=== PATIENT | female | born 1985 | race Caucasian/White ===

== ENCOUNTER 2018-01-25 16:21 | Emergency (ER) | payer OTHER ==
[2018-01-25] MEDS: METOCLOPRAMIDE INJ 10MG/2ML VIAL (J2765) IV (17:42)
[2018-01-25] MEDS: NS 1,000 ML IV (17:43)
[2018-01-25] MEDS: KETOROLAC 30 MG/ML VIAL (J1885) IV (17:43)
== END 2018-01-25 18:31 | disposition home or self-care (01) ==
LOC: M ED 16:21
DX: G43.909 Migraine, unspecified, not intractable, without status migrainosus (principal); D49.6 Neoplasm of unspecified behavior of brain; Z88.2 Allergy status to sulfonamides; Z88.8 Allergy status to other drugs, medicaments and biological substances
CPT/HCPCS: J1885

== ENCOUNTER → 2018-01-25 | Outpatient (REF) | payer OTHER | LOC: M LAB REF 12:59 | DX: J02.0 Streptococcal pharyngitis (principal) | CPT/HCPCS: 87077 ==

== ENCOUNTER 2018-05-07 18:57 | Emergency (ER) | payer OTHER ==
[2018-05-07] MEDS: NS 1,000 ML IV (20:09)
[2018-05-07] MEDS: KETOROLAC 30 MG/ML VIAL (J1885) IV (20:09)
[2018-05-07] MEDS: METOCLOPRAMIDE INJ 10MG/2ML VIAL (J2765) IV (20:09)
[2018-05-07] MEDS: diphenhydrAMINE INJ 50MG/ML VIAL (J1200) IV (20:09)
== END 2018-05-07 21:03 | disposition home or self-care (01) ==
LOC: M ED 18:57
DX: G43.909 Migraine, unspecified, not intractable, without status migrainosus (principal); J45.909 Unspecified asthma, uncomplicated; D43.2 Neoplasm of uncertain behavior of brain, unspecified; Z79.899 Other long term (current) drug therapy; Z88.6 Allergy status to analgesic agent; Z88.2 Allergy status to sulfonamides
CPT/HCPCS: J1200

== ENCOUNTER → 2018-05-18 | Outpatient (CLI) | payer OTHER | LOC: M ADAMS 09:20 | DX: S90.31XA Contusion of right foot, initial encounter (principal); X58.XXXA Exposure to other specified factors, initial encounter; Y92.89 Other specified places as the place of occurrence of the external cause; Y93.9 Activity, unspecified; Y99.9 Unspecified external cause status | CPT/HCPCS: 73630 ==

== ENCOUNTER → 2018-10-24 | Outpatient (CLI) | payer OTHER ==
[~2018-10-24] MED LIST: ACET50TA PO; CETI10TA PO; DEXA5TA; DOCU10ELUD PO; IMIT50TA PO; KETO10TAB; MOM30SS PO; ONDA8TAB7; PERCOCET PO; TYLE325T5 PO; VITMTA PO; ZOFR4TAB14 PO
--- NOTE | 2018-10-24 17:29 | REP ---
Digital diagnostic unilateral left breast mammography with CAD and focused left breast sonography: History: Lump in the left breast at approximately 6 o'clock position. Present times 1 month. No comparison mammography available. Mammographic findings: A skin marker is affixed to the skin at the site of the palpable lump. Routine views the left breast are augmented by magnified focal spot compression images. These demonstrate that the breast parenchyma is heterogeneously dense in a pattern which would inhibit the sensitivity of mammography. No dominant density is seen mammographically at the site of the palpable lump or elsewhere in the left breast. No architectural distortion, worrisome skin change, or suspicious microcalcification is observed. No significant mammographic abnormality. Sonographic findings: The left breast is scanned inferiorly in the area of the palpable lump. At the site of the palpable lump there is a hyperechoic solid area 9 x 4 x 9 mm located 4 cm from the nipple. This is compatible with locally inflamed fat versus small lipoma. It has a benign appearance. Impression: BIRADS category 3 probably benign left breast imaging. Mammogram is unremarkable. A hyperechoic subcutaneous nodule is seen at the site of the palpable lump on ultrasound. Repeat sonography in 6 months time is recommended. Clinical follow-up is recommended. BI-RADS/ACR category 3 mammogram. Probably benign findings. Initial short-term followup (usually 6 month) examination. This mammogram was interpreted with the aid of an FDA-approved computer-aided detection system. The patient states she had a clinical breast exam in October 2018. The patient letter being requested is M3. Dense. Electronically Signed by Elia Tubbs MD 10/24/2018 08:44 P
== END ==
LOC: M RAD 14:49
PROVIDERS: ATTEND Physician Assistant
DX: N63.0 Unspecified lump in unspecified breast (principal)

== ENCOUNTER → 2019-03-21 | Outpatient (REF) | payer OTHER ==
[~2019-03-21] MED LIST changes: -ACET50TA PO; -DOCU10ELUD PO; +DOCU5LIQ PO; +MAPA500T17 PO
[2019-03-21 21:02] LABS: BLOOD UREA NITROGEN 19 MG/DL (7-18); CREATININE FOR GFR 0.66 MG/DL (0.55-1.30); GLOMERULAR FILTRATION RATE > 60.0 (>60)
== END ==
LOC: M LAB REF 13:47
PROVIDERS: ATTEND Physician Assistant
DX: D43.2 Neoplasm of uncertain behavior of brain, unspecified (principal)

== ENCOUNTER → 2019-04-16 | Outpatient (CLI) | payer OTHER ==
--- NOTE | 2019-04-16 12:52 | REP ---
Focused left breast sonography: History: 6 month followup left breast nodule. Comparison sonography October 24, 2018 showed a hyperechoic subcutaneous nodule at the site of a palpable lump. Followup sonography was recommended. Sonographic findings: Left breast is scanned again from 5 o'clock to 7 o'clock. At 6 o'clock position, a oval-shaped very slightly hyperechoic nodular area is seen measuring 14 x 4 x 5 mm. The patient states she can no longer feel a palpable abnormality. The hyperechoic area is felt to be essentially unchanged and not suspicious. Its previous dimensions were 9 x 4 x 9 mm. Impression: BI-RADS category 2 benign sonographic findings. Clinical followup is advised. Electronically Signed by Elia Tubbs MD 04/16/2019 09:05 P
== END ==
LOC: M RAD 11:11
PROVIDERS: ATTEND Physician Assistant
DX: N63.0 Unspecified lump in unspecified breast (principal)

== ENCOUNTER → 2019-07-24 | Outpatient (CLI) | payer OTHER ==
[~2019-07-24] MED LIST changes: +COQ1200C3 PO; +ONDA8TAB10; -ONDA8TAB7; +PREN29TA4 PO
[2019-07-24 18:51] LABS: BASO # 0.1 10^3/uL (0.0-0.2); BASO % 0.5 % (0.0-1.0); EOS # 0.2 10^3/uL (0.0-0.5); EOS % 1.8 % (0.0-3.0); HEMATOCRIT 37.9 % (36.0-47.0); HEMOGLOBIN 12.5 g/dl (12.0-15.5); LYMPH # 2.6 10^3/uL (1.5-5.0); LYMPH % 25.3 % (24.0-44.0); MEAN CORPUSCULAR HEMOGLOBIN 29.8 pg (27.0-33.0); MEAN CORPUSCULAR VOLUME 90.5 fl (80.0-96.0); MONO # 0.6 10^3/uL (0.0-0.8); NEUTROPHILS # 6.8 10^3/uL (1.5-8.5); PLATELET COUNT, AUTOMATED 281 10^3/uL (150-450); RED BLOOD COUNT 4.19 10^6/uL (4.00-5.40); WHITE BLOOD COUNT 10.4 10^3/uL (4.0-10.0)
[2019-07-24 20:27] LABS: CHLAMYDIA DNA AMPLIFICATION NEGATIVE (NEGATIVE); GC DNA AMPLIFICATION NEGATIVE (NEGATIVE)
[2019-07-26 09:57] LABS: HEPATITIS C VIRUS ABY INDEX 0.1 INDEX (<0.8); HIV 1&2 SCREEN CENTAUR NEGATIVE (NEGATIVE); RUBELLA IgG QUALITATIVE IMMUNE (IMMUNE)
== END ==
LOC: M SMT 14:30
PROVIDERS: ATTEND Obstetrics & Gynecology
DX: Z36.89 Encounter for other specified antenatal screening (principal)

== ENCOUNTER → 2019-09-30 | Outpatient (CLI) | payer OTHER ==
[~2019-09-30] MED LIST changes: -COQ1200C3 PO; -ONDA8TAB10; +ONDA8TAB7; -PREN29TA4 PO
--- NOTE | 2019-09-30 12:39 | REP ---
Clinical: Anatomical evaluation. Comparison: None . Findings: Examination demonstrates a single live intrauterine in cephalic presentation. motion is identified by technologist. Placenta is noted anterior and grade zero without evidence for placenta previa or abruption. Amniotic fluid volume is normal. Cervix measures 4.4 cm in length and appears closed. Nuchal cord noted. Gestational age by LMP 18 weeks 2 days with CARON 02/29/2020 . Gestational age by current measurements 19 weeks 2 days with CARON 02/22/2020 . FHR equals 146 beats per minute. BPD 4.6 cm 19 weeks 6 days HC 16.3 cm 19 weeks 0 days AC 13.9 cm 19 weeks 2 days FL 2.8 cm 18 weeks 4 days HL 2.9 cm 19 weeks 3 days HC/AC ratio 1.17 Estimated weight 270 grams ( 75th percentile). Anatomical assessment demonstrates normal structures including cranium, choroid plexus, cavum, cerebellum/posterior fossa, facial features, lungs, four-chamber heart/ventricular outflow tracts, diaphragm, stomach, cord insertion/three-vessel cord, kidneys/bladder, spine, and extremities. Impression: Single live intrauterine in cephalic presentation demonstrating appropriate interval growth. Anatomical assessment is complete and normal. 2. Nuchal cord noted. Electronically Signed by Pj Galdamez MD 09/30/2019 12:31 P
== END ==
LOC: M RAD 11:08
PROVIDERS: ATTEND Obstetrics & Gynecology
DX: Z34.82 Encounter for supervision of other normal pregnancy, second trimester (principal); Z3A.19 19 weeks gestation of pregnancy; O28.3 Abnormal ultrasonic finding on antenatal screening of mother

== ENCOUNTER → 2019-10-01 | Outpatient (CLI) | payer OTHER | LOC: M PLALAB 13:59 | PROVIDERS: ATTEND Obstetrics & Gynecology | DX: O09.522 Supervision of elderly multigravida, second trimester (principal); Z3A.00 Weeks of gestation of pregnancy not specified ==

== ENCOUNTER → 2019-11-04 | Outpatient (CLI) | payer OTHER ==
[2019-11-04 13:44] LABS: HEMATOCRIT 35.4 % (36.0-47.0); HEMOGLOBIN 11.5 g/dl (12.0-15.5); MEAN CORPUSCULAR HEMOGLOBIN 29.7 pg (27.0-33.0); MEAN CORPUSCULAR HGB CONC 32.5 g/dl (32.0-36.5); MEAN CORPUSCULAR VOLUME 91.5 fl (80.0-96.0); PLATELET COUNT, AUTOMATED 251 10^3/uL (150-450); RED BLOOD COUNT 3.87 10^6/uL (4.00-5.40); WHITE BLOOD COUNT 8.9 10^3/uL (4.0-10.0)
== END ==
LOC: M PLALAB 10:29
PROVIDERS: ATTEND Obstetrics & Gynecology
DX: Z34.92 Encounter for supervision of normal pregnancy, unspecified, second trimester (principal)

== ENCOUNTER 2019-11-23 13:22 | Outpatient (CLI) | payer OTHER ==
[~2019-11-23] VITALS: Ht 160 cm; Wt 73.9 kg
[~2019-11-23 13:22] MED LIST changes: +ONDA8TAB10; -ONDA8TAB7
[2019-11-23 13:42] VITALS: BP 98/52
[2019-11-23] MEDS ORDERED: PREN29TA4 PO (13:48)
[2019-11-23] MEDS ORDERED: COQ1200C3 PO (13:48)
[2019-11-23 14:43] VITALS: BP 114/62
== END 2019-11-23 14:21 | disposition home or self-care (01) ==
LOC: M LDO 13:22
PROVIDERS: ATTEND Obstetrics & Gynecology
DX: O36.8120 Decreased fetal movements, second trimester, not applicable or unspecified (principal); Z3A.27 27 weeks gestation of pregnancy

== ENCOUNTER → 2020-01-27 | Outpatient (REF) | payer OTHER, MEDICAID ==
[~2020-01-27] MED LIST changes: +COQ1200C3 PO; +PREN29TA4 PO
== END ==
LOC: M SFHCWAGY 12:52
PROVIDERS: ATTEND Specialist
DX: Z34.83 Encounter for supervision of other normal pregnancy, third trimester (principal)

== ENCOUNTER 2020-02-19 00:30 | Inpatient (IN) | payer OTHER, MEDICAID ==
[2020-02-19] VITALS (24 sets, daily range): BP systolic 98–152; BP diastolic 54–84
[~2020-02-19] VITALS: Ht 160 cm; Wt 76.2 kg
[2020-02-19] MEDS ORDERED: PENICILLIN G POTASSIUM IV 5 MU in D5W MINI-BAG PLUS 100 ML IV STA (01:02)
[2020-02-19] MEDS ORDERED: LACTATED RINGER'S 1000 ML IV STA (01:02)
[2020-02-19 01:26] LABS: HEMATOCRIT 32.2 % (36.0-47.0); HEMOGLOBIN 10.1 g/dl (12.0-15.5); MEAN CORPUSCULAR HEMOGLOBIN 25.8 pg (27.0-33.0); MEAN CORPUSCULAR HGB CONC 31.4 g/dl (32.0-36.5); MEAN CORPUSCULAR VOLUME 82.4 fl (80.0-96.0); PLATELET COUNT, AUTOMATED 230 10^3/uL (150-450); RED BLOOD COUNT 3.91 10^6/uL (4.00-5.40); WHITE BLOOD COUNT 12.5 10^3/uL (4.0-10.0)
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
[2020-02-19] MEDS ORDERED: ONDANSETRON 4 MG TAB PO PRN (03:30)
[2020-02-19] MEDS ORDERED: LR 1,000 ML IV SCH (05:16)
--- NOTE | 2020-02-19 05:18 | IPNPDOC ---
Text Note Date of Service The patient was seen on 02/19/20. NOTE Progress FH 135, Cat I UC 4-5 minutes x 60 seconds, moderate SVE 4+/90/-1, minimal change Augment with pitocin Anticipate NSVB VS,Fishbone, I+O VS, Fishbone, I+O Laboratory Tests 02/19/20 01:15 Vital Signs Date Time Temp Pulse Resp B/P (MAP) Pulse Ox O2 Delivery O2 Flow Rate FiO2 02/19/20 04:29 97 119/69 (86) Angle Pinzon CNM Feb 19, 2020 05:18
[2020-02-19] MEDS ORDERED: PENICILLIN G POTASSIUM IV 2.5 MU in IV 1 EA IV SCH (05:30)
[2020-02-19] MEDS ORDERED: OXYTOCIN DRIP 30 UNITS in IV 1 EA IV SCH ×5 (05:30→10:18)
--- NOTE | 2020-02-19 07:19 | IPNPDOC ---
Text Note Date of Service The patient was seen on 02/19/20. NOTE Progress Becoming uncomfortable UC 2-3 minutes apart x 60 seconds, moderate Pitocin @ 2mu FH 130, Cat I SVE 6/100/-1 Stadol/phenergan ordered. Anticipate NSVB VS,Fishbone, I+O VS, Fishbone, I+O Laboratory Tests 02/19/20 01:15 Vital Signs Date Time Temp Pulse Resp B/P (MAP) Pulse Ox O2 Delivery O2 Flow Rate FiO2 02/19/20 06:26 98.7 100 128/76 (93) I&O- Last 24 Hours up to 6 AM 02/19/20 06:00 Intake Total 800 ml Balance 800 ml Angle Pinzon CNM Feb 19, 2020 07:19
[2020-02-19] MEDS ORDERED: PROMETHAZINE INJ 25 MG/ML VIAL (J2550) IV ONE (07:30)
[2020-02-19] MEDS ORDERED: BUTORPHANOL 2 MG/ML INJ (J0595) IV ONE (07:30)
[2020-02-19] MEDS ORDERED: RHOGAM 300 MCG (1500 IU) INJ (J2790) IM SCH (10:30)
[2020-02-19] MEDS ORDERED: DIBUCAINE 1% OINTMENT 30GM TOP PRN (10:30)
[2020-02-19] MEDS ORDERED: ACETAMINOPHEN TAB 650MG DOSE (2X325MG) PO PRN (10:30)
[2020-02-19] MEDS ORDERED: MEASLES,MUMPS,RUBELLA VACCINE INJ (MMR-II) (90707) SC SCH (10:30)
[2020-02-19] MEDS ORDERED: METHYLERGONOVINE MALEATE 0.2 MG TAB PO PRN (10:30)
[2020-02-19] MEDS ORDERED: ACETAMINOPHEN 500 MG TAB PO PRN (10:30)
[2020-02-19] MEDS ORDERED: DOCUSATE SODIUM 100 MG CAP PO PRN (10:30)
--- NOTE | 2020-02-19 10:33 | DN ---
DATE OF DELIVERY: 02/19/2020 DELIVERY NOTE: Mo is a 3, para 3-0-0-3 now, who is admitted to labor and delivery in active labor. She coped with her labor with IV pain medications. IV Pitocin was started to augment her labor. She had assisted rupture of membranes for a moderate amount of clear odorless fluid is 0923 hours. She reached complete dilation at 0947 hours. She pushed to a normal spontaneous vaginal delivery of a live female infant in right occiput anterior (MARY) position with restitution to occiput transverse (ROT) position at 0951 hours. Shoulders delivered with gentle downward traction and the corpus immediately followed. The female was laid on the maternal abdomen crying and active. Mouth and nares were bulb suctioned. The cord was clamped times two and cut by the father of the baby under my direction once pulsation ceased. Spontaneous expulsion of an intact placenta with three-vessel cord by Schultze mechanism was at 0956 hours. Uterine hemostasis achieved with IV Pitocin rapid infusion and uterine fundal massage. Estimated blood loss 400 mL. Perineum and vagina inspected noted to be intact. female. 9, 9. Weight 7 pounds 13 ounces (3530 grams). The family have named their daughter Merry and the mom is going to breastfeed. At the close of delivery lap counts and instrument counts were correct and verified.
[2020-02-20 06:01] VITALS: BP 108/61
[2020-02-20] MEDS ORDERED: PRENATAL VITAMINS CHEWABLE TABLET PO SCH (09:00)
[2020-02-20 18:00] VITALS: BP 125/75
== END 2020-02-20 18:30 | disposition home or self-care (01) | DRG 560 ==
LOC: M LDO 00:30 → M LDI 01:03 → EEVIPCON 01:03 → M OBS 12:51
PROVIDERS: ADMIT Advanced Practice Midwife; ATTEND Advanced Practice Midwife
PROC: 10E0XZZ Delivery of Products of Conception, External Approach (ICD-10-PCS; principal; 2020-02-19)
PROC: 10907ZC Drainage of Amniotic Fluid, Therapeutic from Products of Conception, Via Natural or Artificial Opening (ICD-10-PCS; 2020-02-19)
DX: O99.824 Streptococcus B carrier state complicating childbirth (principal); O09.523 Supervision of elderly multigravida, third trimester; Z37.0 Single live birth; Z3A.39 39 weeks gestation of pregnancy

== ENCOUNTER → 2021-02-16 | Outpatient (REF) | payer OTHER ==
[2021-02-16 15:27] LABS: HEMATOCRIT 38.4 % (36.0-47.0); HEMOGLOBIN 13.1 g/dl (12.0-15.5); MEAN CORPUSCULAR HGB CONC 34.1 g/dl (32.0-36.5); MEAN CORPUSCULAR VOLUME 90.8 fl (80.0-96.0); PLATELET COUNT, AUTOMATED 256 10^3/uL (150-450); RED BLOOD COUNT 4.23 10^6/uL (4.00-5.40); WHITE BLOOD COUNT 11.2 10^3/uL (4.0-10.0)
[2021-02-16 16:43] LABS: HEPATITIS C VIRUS ABY INDEX 0.1 INDEX (<0.8); HIV 1&2 SCREEN CENTAUR NEGATIVE (NEGATIVE)
[2021-02-16 16:49] LABS: CHLAMYDIA DNA AMPLIFICATION NEGATIVE (NEGATIVE); GC DNA AMPLIFICATION NEGATIVE (NEGATIVE)
== END ==
LOC: M PLALAB 13:23
PROVIDERS: ATTEND Advanced Practice Midwife
DX: Z34.90 Encounter for supervision of normal pregnancy, unspecified, unspecified trimester (principal); Z3A.00 Weeks of gestation of pregnancy not specified

== ENCOUNTER → 2021-03-25 | Outpatient (CLI) | payer OTHER ==
--- NOTE | 2021-03-25 10:18 | REP ---
INDICATION: ANATOMY COMPARISON: None. TECHNIQUE: Transabdominal obstetrical ultrasound with color Doppler evaluation. FINDINGS: Examination demonstrates a single live intrauterine in breech presentation. motion is identified by technologist. Placenta is noted posterior and grade 1 without evidence for placenta previa or abruption. Amniotic fluid volume is normal. Cervix measures 3.9 cm in length and appears closed.. Gestational age by LMP 18 weeks 2 days with CARON 08/24/2021. Gestational age by current measurements 18 weeks 1 day with CARON 08/25/2021. FHR equals 135 beats per minute. Estimated weight 234 grams (48thpercentile). Anatomical assessment demonstrates normal structures including cranium, choroid plexus, cavum, cerebellum/posterior fossa, facial features, lungs, diaphragm, stomach, cord insertion/three-vessel cord, kidneys/bladder, and extremities. IMPRESSION: Single live intrauterine in breech presentation demonstrating appropriate estimated weight. Limited evaluation of the heart/ventricular outflow tracts and spine. Remainder of the anatomical assessment is complete and normal. <Electronically signed by Pj Galdamez > 03/25/21 [id number]
== END ==
LOC: M WHC 08:05
PROVIDERS: ATTEND Advanced Practice Midwife
DX: Z34.82 Encounter for supervision of other normal pregnancy, second trimester (principal)

== ENCOUNTER → 2021-05-21 | Outpatient (CLI) | payer OTHER ==
--- NOTE | 2021-05-21 12:58 | REP ---
INDICATION: F/U ANATOMY. COMPARISON: Comparison study March 25, 2021.. TECHNIQUE: Transabdominal obstetric sonography. FINDINGS: Scanning through the gravid uterus demonstrates a viable single intrauterine gestation in breech lie. motion is observed and heart rate is recorded at 139 beats per minute. A posterior placenta is seen, grade 1, without evidence of placenta previa. Closed cervical length is measured at 4.3 cm transabdominally. No extrauterine abnormality is observed. Amniotic fluid is subjectively normal. No anomaly is seen. The following anatomic structures are identified and felt to be sonographically unremarkable: cranium, choroid plexus, cavum, cerebellum and posterior fossa, face and profile, lungs, four-chamber heart with left and right ventricular outflow tract views, diaphragm, left-sided stomach, abdominal wall cord insertion, three-vessel umbilical cord, kidneys and bladder, spine, and upper and lower extremities. Biometry chart: BPD 6.4 cm, 26 weeks 0 days Head circumference 24.9 cm, 27 weeks 0 days Abdominal circumference 23.1 cm, 27 weeks 3 days Femur length 4.8 cm, 26 weeks 2 days Humeral length 4.6 cm, 27 weeks 1 day HC AC ratio normal 1.07 Cephalic index normal 0.70 Estimated weight 1000 g, 2 lb 3 oz, 59th percentile for 26 weeks 3 days IMPRESSION: Viable single intrauterine gestation at 26 weeks 5 days by today's composite sonographic criteria. CARON by today's sonography August 22, 2021. No complication identified. Expected gestational age estimate from known CARON of August 24, 2021 is 26 weeks 3 days. Appropriate interval growth. In conjunction with the prior study, anatomic survey is felt to be complete. <Electronically signed by Pasquale Tubbs > 05/21/21 1852
== END ==
LOC: M WHC 09:31
PROVIDERS: ATTEND Advanced Practice Midwife
DX: Z34.93 Encounter for supervision of normal pregnancy, unspecified, third trimester (principal)

== ENCOUNTER → 2021-06-04 | Outpatient (CLI) | payer OTHER ==
[2021-06-04 13:16] LABS: HEMATOCRIT 34.8 % (36.0-47.0); HEMOGLOBIN 11.2 g/dl (12.0-15.5); MEAN CORPUSCULAR HEMOGLOBIN 29.8 pg (27.0-33.0); MEAN CORPUSCULAR HGB CONC 32.2 g/dl (32.0-36.5); MEAN CORPUSCULAR VOLUME 92.6 fl (80.0-96.0); PLATELET COUNT, AUTOMATED 243 10^3/uL (150-450); RED BLOOD COUNT 3.76 10^6/uL (4.00-5.40); WHITE BLOOD COUNT 10.9 10^3/uL (4.0-10.0)
== END ==
LOC: M PLALAB 10:16
PROVIDERS: ATTEND Advanced Practice Midwife
DX: O09.529 Supervision of elderly multigravida, unspecified trimester (principal)

== ENCOUNTER → 2021-07-26 | Outpatient (REF) | payer OTHER | LOC: M SFHCWAGY 17:10 | PROVIDERS: ATTEND Obstetrics & Gynecology | DX: Z34.93 Encounter for supervision of normal pregnancy, unspecified, third trimester (principal) ==

== ENCOUNTER 2021-08-05 01:10 | Outpatient (CLI) | payer OTHER ==
--- NOTE | 2021-08-05 07:35 | IPN ---
PROGRESS NOTE DATE: 08/05/2021 SUBJECTIVE: Mo is a 36-year-old 4 para 3-0-0-3 at 37 weeks and 2 days with an EDC of 08/24/2021 based on last menstrual period and confirmed by first trimester ultrasound. She presents to Labor and Delivery today with a report of uncomfortable contractions that started much earlier in the evening and she felt they had gotten more uncomfortable. She does report since arrival to Labor and Delivery that they have dissipated significantly and are far less painful. She denies vaginal bleeding and leakage of fluid and the fetus has been active. The care was [facility] at [facility] in the first trimester. The course was complicated by advanced maternal age, she did decline noninasive testing. She has a history of a brain neoplasm that has been stable, no current medical treatment, the last evaluation was in 2018 and GBS is positive. OBSTETRIC HISTORY: In June 2010, 39 weeks, 8 pound, 13 ounce female, vaginal delivery; December 2012, 39 weeks, 9 pound male, vaginal delivery, January 19, 2020: 39 weeks and 4 days, 7 pound and 13 ounce female, no complications. OBSTETRIC LABS: O positive, antibody screen negative, syphilis negative, gonorrhea and chlamydia negative, hepatitis B negative, hepatitis C negative, HIV negative. Rubella immune. Gestational diabetic screening 82 and GBS is positive. PAST MEDICAL HISTORY: Abnormal PAP smear, depression, seasonal allergies, exercise induced asthma, herniated disc, chronic back pain, juvenile arthritis, migraines and a benign brain tumor. PAST SURGICAL HISTORY: Herniated disc, colonoscopy and colposcopy. FAMILY HISTORY: Ovarian cancer, breast cancer, fibromyalgia, essential tremor, Parkinson's. SOCIAL HISTORY: The patient is . She is a nonsmoker. She denies alcohol and drug use. She does have a history of chlamydia in the remote past. She denies a history of abuse, physical, sexual and emotional. ALLERGIES: Ibuprofen causes nausea and vomiting; sulfa causing nausea and vomiting, and headache. OBJECTIVE: Temperature 97.7, pulse 94, blood pressure is 119/71. She is alert and oriented x3. She is smiling and talkative. She does not appear uncomfortable with her contractions. heart rate is 130 with moderate variability, positive accelerations, negative decelerations, contractions are about every 5 minutes, they palpate mild. Sterile vaginal exam upon arrival: 2 cm dilated, 50% effaced, -3 station. Repeat exam approximately 80 minutes later, cervix is unchanged. Her abdomen is gravid and cephalic presentation is palpated with Emre's maneuver. ASSESSMENT: Intrauterine at 37 and 2/7th weeks, heart rate category 1, not in active labor. PLAN: Discharge the patient to home. She is to keep her next scheduled appointment on August 09. I did review signs and symptoms of active labor, movement counts and danger signs to report. I reviewed access to care with the patient. She has had all of her questions answered and does desire discharge home.
== END 2021-08-05 03:30 | disposition home or self-care (01) ==
LOC: M LDO 01:10
PROVIDERS: ATTEND Advanced Practice Midwife
DX: O60.03 Preterm labor without delivery, third trimester (principal); Z3A.37 37 weeks gestation of pregnancy

== ENCOUNTER 2021-08-16 13:06 | Inpatient (IN) | payer OTHER ==
[~2021-08-16] VITALS: Ht 160 cm; Wt 76.1 kg
[2021-08-16] VITALS (19 sets, daily range): BP systolic 111–166; BP diastolic 59–95
[~2021-08-16 13:06] MED LIST changes: +**PENDING PCN ENTRY XX SCH
[2021-08-16] MEDS ORDERED: PENICILLIN G POTASSIUM IV 5 MU in D5W MINI-BAG PLUS 100 ML IV STA (13:13)
[2021-08-16] MEDS ORDERED: OXYTOCIN DRIP 30 UNITS in IV 1 EA IV PRN (13:15)
[2021-08-16] MEDS ORDERED: OXYTOCIN DRIP 30 UNITS in IV 1 EA IV SCH (13:15)
[2021-08-16] MEDS ORDERED: LIDOCAINE 1% MDV 20ML VIAL INFIL PRN (13:15)
[2021-08-16] MEDS ORDERED: CARBOPROST TROMETHAMINE 250 MCG/ML AMP IM PRN (13:15)
[2021-08-16] MEDS ORDERED: METHYLERGONOVINE MALEATE 0.2 MG/ML VIAL (J2210) IM PRN (13:15)
[2021-08-16] MEDS ORDERED: TRANEXAMIC ACID INJection 1,000 MG in NS 100 ML IV PRN (13:15)
[2021-08-16] MEDS ORDERED: HOME MED LIST COMPLETE! XX SCH (13:25)
[2021-08-16] MEDS: LR 1,000 ML IV SCH ×2 (14:36→18:32)
[2021-08-16 14:59] LABS: HEMATOCRIT 32.5 % (36.0-47.0); HEMOGLOBIN 10.1 g/dl (12.0-15.5); MEAN CORPUSCULAR HEMOGLOBIN 25.9 pg (27.0-33.0); MEAN CORPUSCULAR HGB CONC 31.1 g/dl (32.0-36.5); MEAN CORPUSCULAR VOLUME 83.3 fl (80.0-96.0); PLATELET COUNT, AUTOMATED 227 10^3/uL (150-450); WHITE BLOOD COUNT 9.7 10^3/uL (4.0-10.0)
[2021-08-16 15:21] LABS: CREATININE,RANDOM URINE 62.2 MG/DL; TOTAL PROTEIN,RANDOM URINE 18.8 MG/DL (0.0-12.0)
[2021-08-16 15:23] LABS: ALT/SGPT 21 U/L (12-78); BILIRUBIN,TOTAL 0.3 MG/DL (0.2-1.0); CREATININE FOR GFR 0.68 MG/DL (0.55-1.30); GLOMERULAR FILTRATION RATE > 60.0 (>60); LDH LACTATE DEHYDROGENASE 219 U/L (84-246); URIC ACID 4.8 MG/DL (2.6-6.0)
--- NOTE | 2021-08-16 17:45 | HPEPDOC ---
Obstetrical History & Physical General Date of Admission Aug 16, 2021 at 13:06 Primary Care Physician: WILBER PAUL CNM History of Present Illness Mo is a 36-year-old female, , at 38 6/7 weeks gestation with an CARON of 08/24/2021 which was confirmed by first trimester ultrasound. She initiated care at [facility] and her has been complicated advanced maternal age, GBS positive, history of stable brain neoplasm. She was seen in the office today and sent to Labor and Delivery for induction due to elevated blood pressure reading and headaches with visual changes. She admits to positive movement and occasional uterine contractions. She denies loss of fluids or vaginal bleeding. Chief Complaint: Induction of labor Information Provided By: Patient Age: 36 : 4 Term: 3 Pre-term: 0 Abortions: 0 Livin Care Care: Good Care Dating Final EDC: Aug 24, 2021 Final EDC by: LMP, 1st trimester (US) LMP: Nov 17, 2020 1st Trimester Date: Jan 19, 2021 Antepartum Course Diagnos(e)s Advanced maternal age, preeclampsia, benign brain neoplasm, GBS positive Height (inches): 63 Pre- weight (lbs.): 153 Admission Weight (lbs.): 169 Change in Weight (lbs.): 16 Past Medical History Past Obstetrical History #1: Past Obstetrical History: Multigravida Date of Delivery: Aug 16, 2021 (06/12/2010) Gestation: 39 Type of Delivery: Spontaneous Vaginal Del. Sex of Infant: Female (8# 13oz) Past Obstetrical History #2: Past Obstetrical History: Multigravida Date of Delivery: Dec 27, 2012 Gestation: 39 Type of Delivery: Spontaneous Vaginal Del. Sex of : Male (9#) Complications: No Past Obstetrical History #3: Past Obstetrical History: Multigravida Date of Delivery: Jan 19, 2020 Gestation: 39.4 Type of Delivery: Spontaneous Vaginal Del. 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, History of STD Past Medical History Medical History migraines with vertigo, depression, seasonal allergies, exercise induced asthma, herniated disc with chronic back pain, juvenile arthritis, benign brain tumor Surgical History: Other (herniated disk repair L5-S1) Family History Significant Family History: Hypertension, Other (ovarian cancer, breast cancer) Social History Marital Status: Family situation: Spouse/partner home Psychosocial History: Depression * Smoker: non-smoker Alcohol: Denies Drugs: denies Abuse Violence Screening Have you been hit/kicked/slapp: No Have you been sexually assault: No Imunizations Tdap status: declined Allergies Coded Allergies: ibuprofen (Verified Allergy, Unknown, PT HAS HAD TORADOL BEFORE, 11/23/19) Sulfa (Sulfonamide Antibiotics) (Verified Adverse Reaction, Intermediate, VOMITING, 11/23/19) Medications Scheduled Prenat 115/Iron Fum/Folic/Dss ( 19 Tablet) 1 Each Tablet, 1 TAB PO DAILY Physical Examination Physical Examination GENERAL: Alert and oriented times three. ABDOMEN: Gravid and non-tender to touch. FETUS: Is vertex (VTX) by exam in office today. LUNGS: breathing comfortably on room air, no accessory muscle use. EXTREMITIES: No edema. Laboratory Data 24H LABS Laboratory Tests 2 08/16/21 13:14: Serology Scanned Report Hepatitis B Testing 08/16/21 14:38: Nucleated Red Blood Cells % (auto) 0.0, Urine Random Creatinine 62.2, Urine Random Total Protein 18.8H, Glomerular Filtration Rate > 60.0, Uric Acid 4.8, Total Bilirubin 0.3, Aspartate Amino Transf (AST/SGOT) 27, Alanine Aminotransferase (ALT/SGPT) 21, Lactate Dehydrogenase 219 CBC/BMP Laboratory Tests 08/16/21 14:38 Urine Culture: No Growth Pertinent Laboratoy Data Blood Type: O+ RBC Antibody Screen: Negative HIV: Negative Hepatitis B: Negative Hepatitis C: Negative Rapid Plasma Reagin: Nonreactive Rubella: Immune Varicella: Immune Chlamydia/Gonorrhea: Negative Group B Streptococcus: Positive Quad Screen Test: Declined Cystic Fibrosis: Negative Glucose Tolerance Test: 82 Anatomy Ultrasound Ultrasound Date: May 21, 2021 Placenta Location: Posterior Normal Anatomy: Yes Placenta Previa: No Estimated Weight (grams): 1000 Vaginal Examination Dilation: 4 cm Effacement: 50% Station: -2 Cervical Consistency: Soft Cervical Position: Middle Presentation: Cephalic presentation Assessment Heart Rate (FHR): 140 Variability: Moderate Accelerations: Positive Decelerations: None Tocometer Contractions: Yes Frequency: irregular Assessment/Plan Assessment IOL, Advanced Maternal Age with IUP at 38 6/7 gestation complicated by preeclampsia with severe features. Plan Admit to Labor and Delivery. Patient was seen in office earlier today and Dr. Leon sent her to L & D for admission for elevated blood pressure and h eadaches with visual changes. The plan of care was collaborated with Dr. Leon. Counselled regarding IOL with IV Pitocin. Diet: regular. Group B Streptococcus (GBS) positive. Start antibiotics per order. Labs and intravenous (IV) per unit protocol. Anesthesia consult per patient's request. Anticipate cervical change with vaginal delivery. C-S as appropriate. WILBER PAUL CNM Aug 16, 2021 17:45
[2021-08-16] MEDS: PENICILLIN G POTASSIUM IV 2.5 MU in IV 1 EA IV SCH ×2 (18:27→22:41)
--- NOTE | 2021-08-16 22:54 | IPNPDOC ---
Obstetrical Progress Note Date of Service Aug 16, 2021 Subjective coping well with contractions Objective Vital Signs Date Time Temp Pulse Resp B/P (MAP) Pulse Ox O2 Delivery O2 Flow Rate FiO2 08/16/21 19:05 95 16 126/79 (95) 08/16/21 18:49 99.1 Assessment Heart Rate (FHR): 140 Variability: Moderate Accelerations: Positive Decelerations: None Heart Rate Tracing: Category I Tocometer Contractions: Yes Frequency: regular Strength: palpated as strong Sterile Vaginal Examination Dilation: 6 cm Effacement (%): 70% Station: -1 Cervical Consistency: Soft Cervical Position: Middle Postion/Presentation: Cephalic presentation Assessment and Plan Age: 36 : 4 Term: 3 Pre-term: 0 Abortions: 0 Livin EGA at Admission: 38.6 Status: Reassuring Group B Streptococcus: Positive Anticipate: Vaginal Delivery (2238 with large amount of clear fluid, pitocin discontinued. ) WILBER PAUL CNM Aug 16, 2021 22:54
--- NOTE | 2021-08-17 00:18 | DNPDOC ---
[facility] Delivery Note Delivery Note DATE OF DELIVERY: 08/16/2021 at 2333 PREDELIVERY DIAGNOSIS: 38 6/7 weeks' gestation, IOL for preeclampsia. POST DELIVERY DIAGNOSIS: Delivered. PROCEDURE: Spontaneous vaginal delivery. LAUNDRY PRICING CLERK: Wilber Laguna CNM and JENNIFER Waters ANESTHESIA: none. ESTIMATED BLOOD LOSS: 450 mL. FINDINGS: 7 pounds 14 ounce, 3570 gram male infant, Score 9/9, preeclampsia DELIVERY SUMMARY: Mo is a 36-year-old 4 now para 4-0-0-4 who was admitted to labor and delivery for IOL for an elevated BP in the office, which was diagnosed as preeclampsia. She was started on IV pitocin at 1748 for her IOL and then AROM with clear fluid at 2247. She progressed to fully at 2326 and pushed to a living male in the DESIRAE position with restitution to LOT. The anterior shoulder was delivered with gentle downward traction and the corpus followed. The was placed on the maternal abdomen, active and crying. Cord clamped after two minutes and cut by FOB. Placenta delivered spontaneously via Corley at 2341 with trailing membranes which were manually removed. Uteri ne hemostasis was achieved via rapid infusion of IV pitocin and fundal massage. The vagina, cervix, and perineum was inspected and found to be intact. A dose of unasyn was ordered due to manual removal of trailing membranes. Mom plans to breastfeed. Mom and dad have named him Lyndsey. All counts of instruments and sponges are correct. Both mom and baby are in stable condition. WILBER LAGUNA CNM Aug 17, 2021 00:18
[2021-08-17] MEDS ORDERED: AMPICILLIN SOD/SULBACTAM SOD 3 GM in D5W MINI-BAG PLUS 100 ML IV ONE (00:25)
[2021-08-17] MEDS ORDERED: MOM 30ML SUSPENSION UDC PO PRN (02:05)
[2021-08-17] MEDS ORDERED: MEASLES,MUMPS,RUBELLA VACCINE INJ (MMR-II) (90707) SC SCH (02:05)
[2021-08-17] MEDS ORDERED: DOCUSATE SODIUM 100MG CAPSULE PO PRN (02:05)
[2021-08-17] MEDS ORDERED: DIBUCAINE 1% OINTMENT 30GM TOP PRN (02:05)
[2021-08-17] MEDS ORDERED: ANUSOL HC CREAM 30GM TOP PRN (02:05)
[2021-08-17] MEDS ORDERED: IBUPROFEN 800 MG TAB PO PRN (02:05)
[2021-08-17] MEDS ORDERED: RHOGAM 300 MCG (1500 IU) INJ (J2790) IM SCH (02:05)
[2021-08-17] MEDS ORDERED: ACETAMINOPHEN TAB 650MG DOSE (2X325MG) PO PRN (02:05)
[2021-08-17 02:12] VITALS: BP 117/64
[2021-08-17] MEDS: ACETAMINOPHEN 500 MG TAB PO PRN ×2 (05:19→16:18)
[2021-08-17 05:40] VITALS: BP 98/54
[2021-08-17] MEDS: PRENATAL VITAMINS CHEWABLE TABLET PO SCH (09:00)
--- NOTE | 2021-08-17 11:49 | IPNPDOC ---
Progress Note Date of Service: Aug 17, 2021 Day#: 1 Progress Note SUBJECT: Patient is a 36-year-old G 4 P 4 status post uncomplicated spontaneous vaginal delivery at 38-6/7 weeks' doing well day #1. She has been ambulating, voiding spontaneously without issue and tolerating regular diet. Breast feeding without issue. Reports lochia is like a normal period. Patient is ambulating well. Reports some cramping, well controlled with medication. Voiding and ambulating without difficulty. Denies headaches vision changes or right upper quadrant pain OBJECTIVE: VITAL SIGNS: Within normal limits, afebrile. Alert and oriented times three. Breath sounds clear to auscultation. Heart rate: Regular rate and rhythm, no murmurs, rubs or gallops. Abdomen: Fundus firm at U-2. Soft, NTTP. Minimal to moderate lochia. ASSESSMENT: Patient is a 36-year-old G 4 P 4 status post uncomplicated spontaneous vaginal delivery after presenting to labor and delivery for induction of labor status post diagnosis of preeclampsia without severe features. Doing well on day 1. Vitals within normal limits, afebrile, hemodynamically stable with no evidence of infection. PLAN: 1. Discharge to home tomorrow. 2. Tylenol and Motrin for pain. 3. Encourage breast feeding and ambulation. VS, I&O, 24H, Fishbone Vital Signs/I&O Vital Signs Date Time Temp Pulse Resp B/P (MAP) Pulse Ox O2 Delivery O2 Flow Rate FiO2 08/17/21 05:40 97.6 100 18 98/54 (69) 96 Room Air I&O- Last 24 Hours up to 6 AM 08/17/21 06:00 Intake Total 880 ml Output Total 450 ml Balance 430 ml Laboratory Data 24H LABS Laboratory Tests 2 08/16/21 13:14: Serology Scanned Report Hepatitis B Testing 08/16/21 14:38: Nucleated Red Blood Cells % (auto) 0.0, Urine Random Creatinine 62.2, Urine Random Total Protein 18.8H, Glomerular Filtration Rate > 60.0, Uric Acid 4.8, Total Bilirubin 0.3, Aspartate Amino Transf (AST/SGOT) 27, Alanine Aminotransferase (ALT/SGPT) 21, Lactate Dehydrogenase 219, Syphilis Serology NONREACTIVE CBC/BMP Laboratory Tests 08/16/21 14:38 KRISTIE GALLO MD Aug 17, 2021 11:49
[2021-08-17 17:56] VITALS: BP 122/65
[2021-08-18] MEDS: ACETAMINOPHEN 500 MG TAB PO PRN (05:23)
[2021-08-18 06:07] VITALS: BP 117/67
[2021-08-18] MEDS: PRENATAL VITAMINS CHEWABLE TABLET PO SCH (08:57)
== END 2021-08-18 13:20 | disposition home or self-care (01) | DRG 541 ==
LOC: M LDI 13:06 → M OBS 08-17 01:27
PROVIDERS: ADMIT Advanced Practice Midwife; ATTEND Advanced Practice Midwife
PROC: 10E0XZZ Delivery of Products of Conception, External Approach (ICD-10-PCS; principal; 2021-08-16)
PROC: 10D17Z9 Manual Extraction of Products of Conception, Retained, Via Natural or Artificial Opening (ICD-10-PCS; 2021-08-16)
PROC: 10907ZC Drainage of Amniotic Fluid, Therapeutic from Products of Conception, Via Natural or Artificial Opening (ICD-10-PCS; 2021-08-16)
PROC: 3E033VJ Introduction of Other Hormone into Peripheral Vein, Percutaneous Approach (ICD-10-PCS; 2021-08-16)
DX: O14.14 Severe pre-eclampsia complicating childbirth (principal); O99.824 Streptococcus B carrier state complicating childbirth; Z37.0 Single live birth; Z3A.38 38 weeks gestation of pregnancy; O09.523 Supervision of elderly multigravida, third trimester; Z88.2 Allergy status to sulfonamides; Z88.6 Allergy status to analgesic agent; O73.1 Retained portions of placenta and membranes, without hemorrhage

== ENCOUNTER → 2021-11-24 | Outpatient (REF) | payer OTHER ==
[~2021-11-24] MED LIST changes: -**PENDING PCN ENTRY XX SCH; +ONDA-84; -ONDA8TAB10
== END ==
LOC: M SFHCWAGY 17:27
PROVIDERS: ATTEND Advanced Practice Midwife
DX: Z12.4 Encounter for screening for malignant neoplasm of cervix (principal)

== ENCOUNTER → 2022-10-25 | Outpatient (CLI) | payer OTHER ==
[2022-10-25 14:58] LABS: HEMATOCRIT 36.4 % (36.0-47.0); HEMOGLOBIN 11.5 g/dl (12.0-15.5); MEAN CORPUSCULAR HEMOGLOBIN 29.8 pg (27.0-33.0); MEAN CORPUSCULAR HGB CONC 31.6 g/dl (32.0-36.5); MEAN CORPUSCULAR VOLUME 94.3 fl (80.0-96.0); PLATELET COUNT, AUTOMATED 239 10^3/uL (150-450); RED BLOOD COUNT 3.86 10^6/uL (4.00-5.40); WHITE BLOOD COUNT 7.7 10^3/uL (4.0-10.0)
[2022-10-25 15:26] LABS: HIV 1&2 SCREEN CENTAUR NEGATIVE (NEGATIVE)
[2022-10-25 15:35] LABS: HEPATITIS C VIRUS ABY INDEX 0.1 INDEX (<0.8)
[2022-10-25 16:19] LABS: GC DNA AMPLIFICATION NEGATIVE (NEGATIVE)
== END ==
LOC: M LABDRWAD 10:38
PROVIDERS: ATTEND Obstetrics & Gynecology
DX: Z34.91 Encounter for supervision of normal pregnancy, unspecified, first trimester (principal); Z3A.00 Weeks of gestation of pregnancy not specified

== ENCOUNTER → 2022-11-18 | Outpatient (CLI) | payer OTHER | LOC: M WHC 07:20 | PROVIDERS: ATTEND Obstetrics & Gynecology | DX: Z34.82 Encounter for supervision of other normal pregnancy, second trimester (principal) ==

== ENCOUNTER → 2022-12-02 | Outpatient (CLI) | payer OTHER ==
[2022-12-02 14:25] LABS: HEMATOCRIT 35.3 % (36.0-47.0); HEMOGLOBIN 11.3 g/dl (12.0-15.5); MEAN CORPUSCULAR HEMOGLOBIN 30.3 pg (27.0-33.0); MEAN CORPUSCULAR VOLUME 94.6 fl (80.0-96.0); PLATELET COUNT, AUTOMATED 244 10^3/uL (150-450); RED BLOOD COUNT 3.73 10^6/uL (4.00-5.40); WHITE BLOOD COUNT 10.5 10^3/uL (4.0-10.0)
[2022-12-02 14:27] LABS: URIC ACID 3.6 MG/DL (3.1-7.8)
[2022-12-02 14:29] LABS: LDH LACTATE DEHYDROGENASE 132 U/L (120-246)
[2022-12-02 14:30] LABS: ALT/SGPT 11 U/L (7.0-40); AST/SGOT 16 U/L (<34); BILIRUBIN,TOTAL 0.3 MG/DL (0.3-1.2); GLOMERULAR FILTRATION RATE > 60.0 (>60)
[2022-12-02 15:06] LABS: TOTAL PROTEIN,RANDOM URINE 9.8 MG/DL (0.0-14.0)
[2022-12-02 15:10] LABS: CREATININE,RANDOM URINE 60.6 MG/DL
== END ==
LOC: M PLALAB 10:34
PROVIDERS: ATTEND Advanced Practice Midwife
DX: Z34.82 Encounter for supervision of other normal pregnancy, second trimester (principal)

== ENCOUNTER → 2022-12-21 | Outpatient (CLI) | payer OTHER | LOC: M WHC 06:49 | PROVIDERS: ATTEND Obstetrics & Gynecology | DX: O09.522 Supervision of elderly multigravida, second trimester (principal); Z3A.25 25 weeks gestation of pregnancy ==

== ENCOUNTER → 2022-12-21 | Outpatient (CLI) | payer OTHER ==
[2022-12-21 11:09] LABS: HEMOGLOBIN 11.2 g/dl (12.0-15.5); MEAN CORPUSCULAR HEMOGLOBIN 29.9 pg (27.0-33.0); MEAN CORPUSCULAR VOLUME 93.3 fl (80.0-96.0); PLATELET COUNT, AUTOMATED 233 10^3/uL (150-450); RED BLOOD COUNT 3.75 10^6/uL (4.00-5.40); WHITE BLOOD COUNT 9.8 10^3/uL (4.0-10.0)
== END ==
LOC: M PLALAB 07:33
PROVIDERS: ATTEND Obstetrics & Gynecology
DX: O09.522 Supervision of elderly multigravida, second trimester (principal)

== ENCOUNTER → 2023-03-10 | Outpatient (REF) | payer OTHER | LOC: M PLALAB 15:26 | PROVIDERS: ATTEND Specialist | DX: Z34.83 Encounter for supervision of other normal pregnancy, third trimester (principal) ==

== ENCOUNTER 2023-03-24 20:10 | Inpatient (IN) | payer OTHER ==
[2023-03-24] VITALS (7 sets, daily range): BP systolic 114–135; BP diastolic 60–76
[~2023-03-24] VITALS: Ht 160 cm; Wt 78.2 kg
[2023-03-24] MEDS ORDERED: HOME MED LIST COMPLETE! XX SCH (20:35)
[2023-03-24 20:46] LABS: HEMOGLOBIN 10.2 g/dl (12.0-15.5); MEAN CORPUSCULAR HEMOGLOBIN 26.5 pg (27.0-33.0); MEAN CORPUSCULAR HGB CONC 31.9 g/dl (32.0-36.5); MEAN CORPUSCULAR VOLUME 83.1 fl (80.0-96.0); PLATELET COUNT, AUTOMATED 214 10^3/uL (150-450); RED BLOOD COUNT 3.85 10^6/uL (4.00-5.40)
[2023-03-24 21:07] LABS: TOTAL PROTEIN,RANDOM URINE 14.5 MG/DL (0.0-14.0)
[2023-03-24 21:09] LABS: URIC ACID 5.6 MG/DL (3.1-7.8)
[2023-03-24 21:11] LABS: LDH LACTATE DEHYDROGENASE 387 U/L (120-246)
[2023-03-24 21:12] LABS: CREATININE,RANDOM URINE 46.9 MG/DL
[2023-03-24 21:12] LABS: ALT/SGPT 27 U/L (7.0-40); AST/SGOT 33 U/L (<34); BILIRUBIN,TOTAL 0.3 MG/DL (0.3-1.2); CREATININE FOR GFR 0.75 MG/DL (0.55-1.30); GLOMERULAR FILTRATION RATE > 60.0 (>60)
[2023-03-24] MEDS ORDERED: PENICILLIN G POTASSIUM 5 MU IV 5 MU in D5W MINI-BAG PLUS 100 ML IV STA (22:23)
[2023-03-24] MEDS ORDERED: OXYTOCIN DRIP 30 UNITS in IV 1 EA IV SCH (22:25)
[2023-03-24] MEDS ORDERED: TRANEXAMIC ACID INJection 1,000 MG in NS 100 ML IV PRN (22:25)
[2023-03-24] MEDS ORDERED: LIDOCAINE 1% MDV 20ML VIAL INFIL PRN (22:25)
[2023-03-24] MEDS ORDERED: CARBOPROST TROMETHAMINE 250 MCG/ML AMP IM PRN (22:25)
[2023-03-24] MEDS ORDERED: OXYTOCIN DRIP 30 UNITS in IV 1 EA IV PRN (22:25)
[2023-03-24] MEDS: LR 1,000 ML IV SCH (22:59)
[2023-03-25] VITALS (25 sets, daily range): BP systolic 107–158; BP diastolic 58–95
[2023-03-25] MEDS: PEN G POT 3,000,000 UNIT/50 ML 3,000,000 UNIT in IV 1 EA IV SCH ×2 (03:00→07:10)
[2023-03-25] MEDS: LR 1,000 ML IV SCH (04:27)
[2023-03-25] MEDS ORDERED: ONDANSETRON 4MG 2ML VIAL IV PRN (07:45)
[2023-03-25] MEDS ORDERED: OXYTOCIN DRIP 30 UNITS in IV 1 EA IV SCH (08:15)
[2023-03-25] MEDS ORDERED: RHOGAM 300MCG (1500IU) INJ IM SCH (08:15)
[2023-03-25] MEDS ORDERED: DIBUCAINE 1% OINTMENT 30GM TOP PRN (08:15)
[2023-03-25] MEDS ORDERED: DOCUSATE SODIUM 100MG CAPSULE PO PRN (08:15)
[2023-03-25] MEDS ORDERED: ANUSOL HC CREAM 30GM TOP PRN (08:15)
[2023-03-25] MEDS ORDERED: ACETAMINOPHEN 500 MG TAB PO PRN (08:15)
[2023-03-25] MEDS ORDERED: MOM 30ML SUSPENSION UDC PO PRN (08:15)
[2023-03-25] MEDS ORDERED: METHYLERGONOVINE MALEATE 0.2 MG TAB PO PRN (08:15)
[2023-03-25] MEDS: ACETAMINOPHEN 500 MG TAB PO PRN ×2 (08:53→15:44)
[2023-03-25] MEDS: PRENATAL VITAMINS CHEWABLE TABLET PO SCH (10:17)
[2023-03-25] MEDS: ACETAMINOPHEN TAB 650MG DOSE (2X325MG) PO PRN ×2 (20:12→23:38)
[2023-03-26 02:00] VITALS: BP 114/60
[2023-03-26 05:57] VITALS: BP 145/86
[2023-03-26] MEDS: PRENATAL VITAMINS CHEWABLE TABLET PO SCH (09:00)
[2023-03-26 10:00] VITALS: BP 119/74
[2023-03-26] MEDS: ACETAMINOPHEN 500 MG TAB PO PRN (12:29)
[2023-03-26 14:00] VITALS: BP 131/71
[2023-03-27] MEDS ORDERED: MEASLES,MUMPS,RUBELLA VACCINE INJ (MMR-II) SC.IMMUN ONE (09:00)
== END 2023-03-26 18:02 | disposition home or self-care (01) | DRG 560 ==
LOC: M LDO 20:10 → M LDI 21:50 → M OBS 03-25 10:28
PROVIDERS: ADMIT Advanced Practice Midwife; ATTEND Advanced Practice Midwife
PROC: 10E0XZZ Delivery of Products of Conception, External Approach (ICD-10-PCS; principal; 2023-03-25)
DX: O14.94 Unspecified pre-eclampsia, complicating childbirth (principal); O99.824 Streptococcus B carrier state complicating childbirth; Z37.0 Single live birth; Z3A.38 38 weeks gestation of pregnancy; O09.523 Supervision of elderly multigravida, third trimester; Z88.2 Allergy status to sulfonamides; Z88.6 Allergy status to analgesic agent

== ENCOUNTER 2023-06-14 11:59 | Observation (INO) | payer OTHER ==
[~2023-06-14] VITALS: Ht 160 cm; Wt 70.4 kg
[~2023-06-14 11:59] MED LIST changes: +MAGN100C3 PO; +VITA30004 PO; +VITA500T41 PO
[2023-06-14 15:04] VITALS: BP 131/77; TEMP 97.8; O2SAT 96
[2023-06-14] MEDS ORDERED: MOM 30ML SUSPENSION UDC PO PRN (15:15)
[2023-06-14] MEDS ORDERED: ACETAMINOPHEN 500 MG TAB PO PRN (15:25)
[2023-06-14] MEDS ORDERED: HOME MED LIST COMPLETE! XX SCH (17:10)
[2023-06-14 19:00] VITALS: O2SAT 97
[2023-06-14 20:00] VITALS: O2SAT 99
[2023-06-14] MEDS: DOCUSATE SODIUM 100MG CAPSULE PO SCH (20:17)
[2023-06-14 20:40] VITALS: BP 108/59; TEMP 97.8; O2SAT 100
[2023-06-14 21:00] VITALS: O2SAT 98
[2023-06-14 22:00] VITALS: O2SAT 98
[2023-06-15 00:30] VITALS: BP 104/55; TEMP 97.6; O2SAT 98
[2023-06-15 04:00] VITALS: O2SAT 100
[2023-06-15 04:50] VITALS: BP 111/56; TEMP 98.8; O2SAT 97
[2023-06-15 05:00] VITALS: O2SAT 97
[2023-06-15 07:45] VITALS: BP 127/72; TEMP 97.4; O2SAT 97
[2023-06-15] MEDS: DOCUSATE SODIUM 100MG CAPSULE PO SCH (08:27)
[2023-06-15] MEDS ORDERED: ENOXAPARIN 40MG/0.4ML SYRINGE (J1650 PER 10MG) SC SCH (09:00)
[2023-06-15 11:25] VITALS: BP 104/61; TEMP 97.8; O2SAT 100
== END 2023-06-15 12:20 | disposition home health service (06) ==
LOC: INTOOBSV 15:04 → M PCU 15:04
PROVIDERS: ADMIT Student in an Organized Health Care Education/Training Program; ATTEND Student in an Organized Health Care Education/Training Program
DX: G43.409 Hemiplegic migraine, not intractable, without status migrainosus (principal); D72.829 Elevated white blood cell count, unspecified; F32.A Depression, unspecified; Z91.040 Latex allergy status; Z88.2 Allergy status to sulfonamides; Z88.8 Allergy status to other drugs, medicaments and biological substances; Z79.899 Other long term (current) drug therapy

== ENCOUNTER 2024-10-22 12:23 | Observation (INO) | payer OTHER ==
[~2024-10-22] VITALS: Ht 160 cm; Wt 68.2 kg
[2024-10-22] MEDS ORDERED: GALC120S INJ (12:30)
[2024-10-22] MEDS ORDERED: ISOVUE-370 76% 100ML VIAL As Ordered ONE (12:53)
[2024-10-22] MEDS: METOCLOPRAMIDE INJ 10MG/2ML VIAL IV ONE (19:54)
[2024-10-22] MEDS: NS (Normal Saline) 0.9% 1,000 ML IV ONE (19:55)
[2024-10-22] MEDS: ACETAMINOPHEN 500 MG TAB PO ONE (19:55)
[2024-10-22] MEDS: KETOROLAC 30 MG/ML 1ML VIAL IV ONE (19:56)
[2024-10-22] MEDS: diphenhydrAMINE 50MG/ML VIAL IV ONE (19:56)
[2024-10-22 20:00] LABS: HEMATOCRIT 39.3 % (36.0-47.0); MEAN CORPUSCULAR HGB CONC 33.1 g/dl (32.0-36.5); MEAN CORPUSCULAR VOLUME 90.6 fl (80.0-96.0); PLATELET COUNT, AUTOMATED 341 10^3/uL (150-450); RED BLOOD COUNT 4.34 10^6/uL (4.00-5.40); WHITE BLOOD COUNT 8.8 10^3/uL (4.0-10.0)
[2024-10-22 20:04] LABS: ERYTHROCYTE SEDIMENTATION RATE 17 mm/hr (0-20)
[2024-10-22] MEDS ORDERED: HOME MED LIST COMPLETE! XX SCH (20:55)
[2024-10-23] MEDS ORDERED: MAALOX 30 ML SUSP *UDC PO PRN (01:40)
[2024-10-23] MEDS ORDERED: ACETAMINOPHEN 325 MG TAB PO PRN (01:40)
[2024-10-23] MEDS ORDERED: MOM 30ML SUSPENSION UDC PO PRN (01:40)
[2024-10-23 07:20] LABS: HEMATOCRIT 39.8 % (36.0-47.0); HEMOGLOBIN 12.6 g/dl (12.0-15.5); MEAN CORPUSCULAR HEMOGLOBIN 29.3 pg (27.0-33.0); MEAN CORPUSCULAR HGB CONC 31.7 g/dl (32.0-36.5); MEAN CORPUSCULAR VOLUME 92.6 fl (80.0-96.0); PLATELET COUNT, AUTOMATED 305 10^3/uL (150-450); WHITE BLOOD COUNT 7.5 10^3/uL (4.0-10.0)
[2024-10-23 07:32] LABS: INR 1.01; PARTIAL THROMBOPLASTIN TIME 28.7 SECONDS (24.8-34.2); PROTHROMBIN TIME 13.6 SECONDS (12.5-14.5)
[2024-10-23 07:52] LABS: CK-MB VALUE MASS < 1.0 NG/ML (<3.6)
[2024-10-23 07:55] LABS: ALBUMIN 3.5 G/DL (3.2-5.2); ALKALINE PHOSPHATASE 41 U/L (35-104); ALT/SGPT 11 U/L (7.0-40); AST/SGOT 8 U/L (<34); BILIRUBIN,DIRECT 0.2 MG/DL (<0.4); BILIRUBIN,TOTAL 0.6 MG/DL (0.3-1.2); BLOOD UREA NITROGEN 23 MG/DL (9-23); CALCIUM LEVEL 9.2 MG/DL (8.5-10.1); CARBON DIOXIDE LEVEL 29 MMOL/L (20-31); CHLORIDE LEVEL 107 MMOL/L (98-107); CHOLESTEROL LEVEL 168 MG/DL (<200); CHOLESTEROL RISK RATIO 3.47 (<5); CREATININE FOR GFR 0.82 MG/DL (0.55-1.30); GLOMERULAR FILTRATION RATE > 60.0 (>60); GLUCOSE, FASTING 84 MG/DL (60-100); HDL CHOLESTEROL 48.3 MG/DL (>40); LDL CHOLESTEROL 103.7 MG/DL (<100); MAGNESIUM LEVEL 2.2 MG/DL (1.8-2.4); NON-HDL-C 119.7 MG/DL; POTASSIUM SERUM 4.4 MMOL/L (3.5-5.1); SODIUM LEVEL 143 MMOL/L (136-145); TOTAL PROTEIN 6.2 G/DL (5.7-8.2); TRIGLYCERIDES LEVEL 80 MG/DL (<150)
[2024-10-23 07:56] LABS: CPK CREATINE PHOSPHOKINASE 37 U/L (34-145)
[2024-10-23 08:10] LABS: HEMOGLOBIN A1c 5.2 % (4.0-6.0)
[2024-10-23] MEDS: DOCUSATE SODIUM 100MG CAPSULE PO SCH (09:00)
[2024-10-23 09:37] VITALS: TEMP 98.1
[2024-10-23 10:30] VITALS: BP 124/79
[2024-10-23 10:45] VITALS: O2SAT 100
== END 2024-10-23 15:20 | disposition home or self-care (01) ==
LOC: M ED 12:23 → M ED INP 23:26
PROVIDERS: ADMIT Family Medicine; ATTEND Family Medicine
DX: G43.109 Migraine with aura, not intractable, without status migrainosus (principal); G43.419 Hemiplegic migraine, intractable, without status migrainosus; Z86.73 Personal history of transient ischemic attack (TIA), and cerebral infarction without residual deficits; I67.82 Cerebral ischemia; H53.9 Unspecified visual disturbance; R20.2 Paresthesia of skin; I10 Essential (primary) hypertension; F32.A Depression, unspecified; M08.90 Juvenile arthritis, unspecified, unspecified site; J45.909 Unspecified asthma, uncomplicated; Z98.890 Other specified postprocedural states; Z98.1 Arthrodesis status; Z88.2 Allergy status to sulfonamides; Z88.8 Allergy status to other drugs, medicaments and biological substances; Z91.040 Latex allergy status; Z79.899 Other long term (current) drug therapy
CPT/HCPCS: 36415; 70450; 70496; 70498; 70544; 70547; 70551; 80047; 80053; 80061; 82248; 82550; 82553; 83036; 83735; 84484; 85027; 85610; 85652; 85730; 86140; 86850; 86900; 86901; 96374; 96375; 99285; J1200; J1885; J2765; Q9967

== ENCOUNTER → 2025-07-02 | Outpatient (CLI) | payer OTHER ==
[~2025-07-02] MED LIST changes: +GALC120S INJ
== END ==
LOC: M WHC 11:06
PROVIDERS: ATTEND Advanced Practice Midwife
DX: N64.4 Mastodynia (principal); R92.343 Mammographic extreme density, bilateral breasts